=== PATIENT | male | born 1950 | race Caucasian/White ===

== ENCOUNTER 2020-11-02 12:20 | Inpatient (IN) | payer MEDICARE ==
--- NOTE | 2020-11-02 12:26 | ERPHSYRPT ---
- History of Present Illness Time Seen by Provider: 11/02/20 12:26 Source: patient Exam Limitations: clinical condition Physician History: This is a 70-year-old diabetic male who is not the best historian and states that he has had a left foot bunion tenderness with associated redness for at least 2 weeks. Patient states that he has not taken a bath in over a week. 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 He admits to not caring for himself very well. His family practice doctors are in [place]. Patient denies shortness of breath and he denies chest pain. He has not noticed any fevers. He has no abdominal pain. Patient arrives with somewhat rapid heart rate. Patient states he did not take his medications today. However he states he does not monitor his blood sugar at all. In further discussing his history he does have history of peripheral vascular disease and has left lower extremity stents in place per his report. He is a patient that has hypertension. He is taking Plavix, lisinopril, Zetia, metoprolol and Trental. Patient states he has no primary heart problems. He states he is never had a myocardial infarction and has no known heart rhythm problems. Method of Injury: other (No injury) Quality: aching Severity of Pain-Max: moderate Severity of Pain-Current: moderate Lower Extremities Pain: foot: left Modifying Factors: Improves With: nothing Allergies/Adverse Reactions: Penicillins Allergy (Verified 11/02/20 12:44) Home Medications: Allopurinol 100 mg [Zyloprim 100 mg] 100 mg PO DAILY 11/02/20 [History] Clopidogrel Bisulfate 75 mg [PLAVIX 75 MG Tablet] 75 mg PO DAILY 11/02/20 [History] Ezetimibe 10 mg [Zetia 10 MG] 10 mg PO DAILY 11/02/20 [History] Gabapentin 100 mg PO TID 11/02/20 [History] Lisinopril 20 mg [Zestril 20 MG] 20 mg PO DAILY 11/02/20 [History] Metformin HCl Xr 500 mg [Glucophage XR 500 MG] 500 mg PO DAILY 11/02/20 [History] Metoprolol Tartrate 50 mg PO DAILY 11/02/20 [History] Omeprazole 20 mg PO DAILY 11/02/20 [History] Pentoxifylline 400 mg [Trental 400 MG] 400 mg PO UD 11/02/20 [History] Simvastatin 80 mg PO DAILY 11/02/20 [History] Travel Risk - International Travel Have you traveled outside of the country in past 3 weeks: No - Coronavirus Screening Are you exhibiting any of the following symptoms?: No Close contact with a COVID-19 positive Pt in past 14-21 Days: No - Review of Systems Constitutional: No Symptoms Eyes: No Symptoms Ears, Nose, & Throat: No Symptoms Respiratory: No Symptoms Cardiac: No Symptoms Abdominal/Gastrointestinal: No Symptoms Genitourinary Symptoms: No Symptoms Musculoskeletal: Other (Left foot pain), No Fall, No Injury Skin: Cellulitis (Left foot) Neurological: No Symptoms Psychological: No Symptoms Endocrine: No Symptoms Hematologic/Lymphatic: No Symptoms Immunological/Allergic: No Symptoms All Other Systems: Reviewed and Negative - Past Medical History Pertinent Past Medical History: Yes - Past Surgical History Past Surgical History: Yes - Nursing Vital Signs Nursing Vital Signs: Initial Vital Signs Temperature 98.2 F 11/02/20 12:27 Pulse Rate 125 H 11/02/20 12:27 Blood Pressure 185/95 11/02/20 12:27 O2 Sat by Pulse Oximetry 94 L 11/02/20 12:27 Pain Scale Pain Intensity 2 - Physical Exam General Appearance: no apparent distress, alert, anxiety Eyes, Ears, Nose, Throat Exam: normal ENT inspection, moist mucous membranes Neck Exam: normal inspection, non-tender, supple, full range of motion Cardiovascular/Respiratory Exam: chest non-tender, normal breath sounds, heart sounds normal, no respiratory distress, irregularly irregular Gastrointestinal/Abdominal Exam: non-tender, soft Back Exam: normal inspection, normal range of motion, No CVA tenderness, No vertebral tenderness Hips Exam: bilateral: non-tender, normal inspection, normal range of motion, no evidence of injury Legs Exam: bilateral leg: non-tender, normal inspection, normal range of motion, no evidence of injury Knees Exam: bilateral knee: non-tender, normal inspection, normal range of motion, no evidence of injury Ankle Exam: bilateral ankle: non-tender, normal inspection, normal range of motion, no evidence of injury Foot Exam: right foot: non-tender, normal inspection, normal range of motion, left foot: bone tenderness, infection, soft tissue tenderness, swelling, bilateral foot: no evidence of injury Neuro/Tendon Exam: normal sensation, normal motor functions, normal tendon func tions, responds to pain Mental Status Exam: alert, oriented x 3, cooperative Skin Exam: other (See above left foot) SpO2 Interpretation: normal - Course Nursing assessment & vital signs reviewed: Yes EKG Interpreted by Me: RATE (115), NORMAL AXIS, NORMAL QRS, Other (?afib/flutter. No acute ischemic changes.) Ordered Tests: Active Orders 24 hr Category Date Time Status Finishing Area Operator STAT Care 11/02/20 13:24 Active EKG-ER Only STAT Care 11/02/20 13:54 Active IV Insertion STAT Care 11/02/20 12:38 Active POCT Glucose Check STAT Care 11/02/20 13:32 Active FOOT (MINIMUM 3 VIEWS) Stat Exams 11/02/20 12:43 Completed BLOOD CULTURE Stat Lab 11/02/20 13:00 Received CBC W DIFF Stat Lab 11/02/20 12:40 Completed CMP Stat Lab 11/02/20 12:40 Completed Lactic Acid Stat Lab 11/02/20 12:38 Completed POCT GLUCOSE Stat Lab 11/02/20 12:44 Completed Transfer Order Routine Transfer 11/02/20 Ordered Medication Summary Generic Name Dose Route Start Last Admin Trade Name Freq PRN Reason Stop Dose Admin Sodium Chloride 1,000 mls @ 100 mls/hr 11/02/20 12:45 11/02/20 12:53 Sodium Chloride 0.9% 1000 Ml IV 12/02/20 12:44 100 mls/hr .Q10H RAFAEL Administration Discontinued Medications Generic Name Dose Route Start Last Admin Trade Name Freq PRN Reason Stop Dose Admin Levofloxacin/Dextrose 500 mg in 100 mls @ 100 mls/hr 11/02/20 14:26 11/02/20 14:44 Levofloxacin 500mg/100ml D5w IV 11/02/20 15:25 100 mls/hr STAT STA 100 mls/hr Administration Levofloxacin/Dextrose Confirm 11/02/20 14:43 Levofloxacin 500mg/100ml D5w Administered 11/02/20 14:44 Dose 500 mg in 100 mls @ ud IV .STK-MED ONE Metoprolol Tartrate Confirm 11/02/20 13:57 Lopressor 5 Mg/5 Ml Injection Administered 11/02/20 13:58 Dose 5 mg IV .STK-MED ONE Metoprolol Tartrate 5 mg 11/02/20 14:00 11/02/20 13:55 Lopressor 5 Mg/5 Ml Injection IV 11/02/20 14:01 5 mg STAT ONE Administration Metoprolol Tartrate 2.5 mg 11/02/20 14:52 11/02/20 14:55 Lopressor 5 Mg/5 Ml Injection IV 11/02/20 14:53 2.5 mg STAT ONE Administration Metoprolol Tartrate Confirm 11/02/20 14:54 Lopressor 5 Mg/5 Ml Injection Administered 11/02/20 14:55 Dose 5 mg IV .STK-MED ONE Morphine Sulfate 4 mg 11/02/20 15:09 11/02/20 15:23 Morphine Sulfate 4 Mg Inj IV 11/02/20 15:10 4 mg STAT ONE Administration Morphine Sulfate Confirm 11/02/20 15:23 Morphine Sulfate 4 Mg Inj Administered 11/02/20 15:24 Dose 4 mg .ROUTE .STK-MED ONE Ondansetron HCl 4 mg 11/02/20 15:09 11/02/20 15:24 Zofran 4 Mg/2 Ml Vial IV 11/02/20 15:10 4 mg STAT ONE Administration Ondansetron HCl Confirm 11/02/20 15:22 Zofran 4 Mg/2 Ml Vial Administered 11/02/20 15:23 Dose 4 mg .ROUTE .STK-MED ONE Lab/Rad Data: Laboratory Result Diagrams 11/02/20 12:40 11/02/20 12:40 Laboratory Results 11/02/20 11/02/20 11/02/20 Range/Units 12:44 12:40 12:40 WBC 10.8 H (4.0-10.5) K/mm3 RBC 4.85 (4.1-5.6) M/mm3 Hgb 15.7 (12.5-18.0) gm/dl Hct 47.3 (42-50) % MCV 97.5 (78-100) fl MCH 32.4 H (26-32) pg MCHC 33.2 (32-36) g/dl RDW 13.4 (11.5-14.0) % Plt Count 349 (150-450) K/mm3 MPV 8.5 (7.5-11.0) fl Gran % 76.6 H (36.0-66.0) % Eos # (Auto) 0.08 (0-0.5) Absolute Lymphs (auto) 1.33 (1.0-4.6) Absolute Monos (auto) 1.09 (0.0-1.3) Lymphocytes % 12.3 L (24.0-44.0) % Monocytes % 10.1 (0.0-12.0) % Eosinophils % 0.7 (0.00-5.0) % Basophils % 0.3 (0.0-0.4) % Absolute Granulocytes 8.29 H (1.4-6.9) Basophils # 0.03 (0-0.4) Sodium 133 L (137-145) mmol/L Potassium 4.4 (3.5-5.1) mmol/L Chloride 99 (98-107) mmol/L Carbon Dioxide 24 (22-30) mmol/L Anion Gap 14.6 (5-15) MEQ/L BUN 9 (9-20) mg/dL Creatinine 0.70 (0.66-1.25) mg/dL Estimated GFR > 60.0 ML/MIN Glucose 120 H (74-106) mg/dL POC Glucometer 118 H (74 to 106) mg/dL Lactic Acid (0.4-2.0) Calcium 9.6 (8.4-10.2) mg/dL Total Bilirubin 0.60 (0.2-1.3) mg/dL AST 30 (17-59) U/L ALT 7 (0-50) U/L Alkaline Phosphatase 91 (38-126) U/L Serum Total Protein 7.4 (6.3-8.2) g/dL Albumin 4.0 (3.5-5.0) g/dL 11/02/20 Range/Units 12:38 WBC (4.0-10.5) K/mm3 RBC (4.1-5.6) M/mm3 Hgb (12.5-18.0) gm/dl Hct (42-50) % MCV (78-100) fl MCH (26-32) pg MCHC (32-36) g/dl RDW (11.5-14.0) % Plt Count (150-450) K/mm3 MPV (7.5-11.0) fl Gran % (36.0-66.0) % Eos # (Auto) (0-0.5) Absolute Lymphs (auto) (1.0-4.6) Absolute Monos (auto) (0.0-1.3) Lymphocytes % (24.0-44.0) % Monocytes % (0.0-12.0) % Eosinophils % (0.00-5.0) % Basophils % (0.0-0.4) % Absolute Granulocytes (1.4-6.9) Basophils # (0-0.4) Sodium (137-145) mmol/L Potassium (3.5-5.1) mmol/L Chloride (98-107) mmol/L Carbon Dioxide (22-30) mmol/L Anion Gap (5-15) MEQ/L BUN (9-20) mg/dL Creatinine (0.66-1.25) mg/dL Estimated GFR ML/MIN Glucose (74-106) mg/dL POC Glucometer (74 to 106) mg/dL Lactic Acid 1.8 (0.4-2.0) Calcium (8.4-10.2) mg/dL Total Bilirubin (0.2-1.3) mg/dL AST (17-59) U/L ALT (0-50) U/L Alkaline Phosphatase (38-126) U/L Serum Total Protein (6.3-8.2) g/dL Albumin (3.5-5.0) g/dL - Progress Progress: pain not gone completely, re-examined Progress Note: 11/02/20 13:08 X-ray of the left foot shows no acute fracture or dislocation. 11/02/20 13:23 There is dopplerable right pedal pulses. There is dopplerable left posterior tibial pulse that is weak. I do not appreciate a dopplerable left dorsalis pedis pulse. 11/02/20 15:21 Medical decision making: I think this patient would be best served by inpatient management. We spoke with Dr. Yusuf earlier today regarding this patient. Dr. Yusuf stated that we can consult him if the patient is admitted in the hospital. If the patient is to be discharged home he could be seen in the office tomorrow morning. The patient will be admitted into the hospital. I spoke with Dr. Patrick regarding this patient. I reviewed the patient history, condition, physical findings, results of his laboratory work-up as well as x-ray findings. We will admit him to the hospital and provide him with intravenous antibiotics, oral Plavix, gentle rehydration, and pain control as well as podiatric consultation. Counseled pt/family regarding: lab results, diagnosis - Departure Departure Disposition: Home Clinical Impression: Diabetic infection of left foot, Peripheral vascular disease Condition: Stable Critical Care Time: No Referrals: Provider,Unknown [NON-STAFF PHY W/O PRIVILEGES] -
[2020-11-02] MEDS ORDERED: Sodium Chloride 0.9% 1000 ML 1,000 ML IV SCH (12:45)
[2020-11-02] MEDS ORDERED: Sodium Chloride 0.9% 1000 ML 1,000 ML ONE (12:46)
--- NOTE | 2020-11-02 13:03 | XRAY ---
Indication: Pain and erythema 2 weeks. Diabetic ulcer 1st metatarsal. Comparison: None 3 nonweightbearing views left foot demonstrates moderate 1st MTP bunion deformity, small plantar heel spur, and mild scattered vascular calcifications. No other bony, articular, or soft tissue abnormalities.
[2020-11-02 13:09] LABS: Absolute Neutrophil Ct (ANC) 8.29 (1.4-6.9); BASOPHIL % 0.3 % (0.0-0.4); Basophil (Absolute #) 0.03 (0-0.4); Eosinophil % 0.7 % (0.00-5.0); Eosinophil (Absolute #) 0.08 (0-0.5); Hematocrit 47.3 % (42-50); Hemoglobin 15.7 gm/dl (12.5-18.0); Lymphocyte (Absolute #) 1.33 (1.0-4.6); Lymphocytes % 12.3 % (24.0-44.0); Mean Cell Volume 97.5 fl (78-100); Mean Corpuscular Hemoglobin 32.4 pg (26-32); Mean Corpuscular Hgb Concent. 33.2 g/dl (32-36); Mean Platelet Volume 8.5 fl (7.5-11.0); Monocyte (Absolute #) 1.09 (0.0-1.3); Monocytes % 10.1 % (0.0-12.0); Neutrophil % 76.6 % (36.0-66.0); Platelet Count 349 K/mm3 (150-450); Red Blood Count 4.85 M/mm3 (4.1-5.6); Red Cell Distribution Width 13.4 % (11.5-14.0); White Blood Count 10.8 K/mm3 (4.0-10.5)
[2020-11-02 13:22] LABS: ALKALINE PHOSPHATASE 91 U/L (38-126); ANION GAP 14.6 MEQ/L (5-15); BLOOD UREA NITROGEN 9 mg/dL (9-20); CHLORIDE 99 mmol/L (98-107); Calcium 9.6 mg/dL (8.4-10.2); Carbon Dioxide 24 mmol/L (22-30); EST GLOMERULAR FILTRATION RATE > 60.0 ML/MIN; Glucose 120 mg/dL (74-106); Potassium 4.4 mmol/L (3.5-5.1); SGOT/AST 30 U/L (17-59); SGPT/ALT 7 U/L (0-50); SODIUM 133 mmol/L (137-145); Total Protein 7.4 g/dL (6.3-8.2)
[2020-11-02] MEDS ORDERED: LOPRESSOR 5 MG/5 ML INJECTION IV ONE ×4 (13:57→14:54)
[2020-11-02] MEDS ORDERED: Levofloxacin 500MG/100ML D5W 500 MG/100 ML BAG IV STA (14:26)
[2020-11-02] MEDS ORDERED: Levofloxacin 500MG/100ML D5W 500 MG/100 ML BAG IV ONE (14:43)
[2020-11-02] MEDS ORDERED: MORPHINE SULFATE 4 MG INJ IV ONE (15:09)
[2020-11-02] MEDS ORDERED: Zofran 4 MG/2 ML VIAL IV ONE (15:09)
[2020-11-02] MEDS ORDERED: Zofran 4 MG/2 ML VIAL ONE (15:22)
[2020-11-02] MEDS ORDERED: MORPHINE SULFATE 4 MG INJ ONE (15:23)
[2020-11-02 16:10] LABS: INFLUENZA A NEGATIVE (NEGATIVE); INFLUENZA B NEGATIVE (NEGATIVE); RESPIRATORY SYNCTIAL VIRUS NEGATIVE (Negative)
[2020-11-02] MEDS ORDERED: TYLENOL 325 MG PO PRN (17:48)
[2020-11-02] MEDS ORDERED: Zofran 4 MG/2 ML VIAL IV PRN (17:48)
[2020-11-02] MEDS ORDERED: HUMULIN R SQ PRN (17:48)
[2020-11-02] MEDS ORDERED: NORCO 5/325 MG PO PRN (17:52)
[2020-11-02] MEDS ORDERED: DECADRON 10MG INJ. IV ONE (18:00)
[2020-11-02] MEDS ORDERED: REMDESIVIR 200 MG in Sodium Chloride 0.9% 250 ML 250 ML IV ONE (18:55)
[2020-11-02] MEDS ORDERED: REMDESIVIR IV ONE (19:01)
[2020-11-02] MEDS ORDERED: Sodium Chloride 0.9% 250 ML 250 ML IV ONE (19:01)
[2020-11-02] MEDS ORDERED: Decadron 4 MG INJ ONE (19:04)
[2020-11-02] MEDS: Sodium Chloride 0.9% 1000 ML 1,000 ML IV SCH (19:51)
[2020-11-02] MEDS ORDERED: PLAVIX 75 MG Tablet ONE (20:08)
[2020-11-02] MEDS: ZYLOPRIM 100 MG PO SCH (20:41)
[2020-11-02] MEDS: PLAVIX 75 MG Tablet PO SCH (20:41)
[2020-11-02] MEDS: Neurontin 100 MG PO SCH ×2 (20:41→23:18)
[2020-11-02] MEDS: Lopressor 50 MG PO SCH (20:41)
[2020-11-02] MEDS: Zetia 10 MG PO SCH (20:41)
[2020-11-02] MEDS: Zestril 20 MG PO SCH (20:42)
[2020-11-02] MEDS: Protonix 40MG Tablet PO SCH (20:42)
[2020-11-02] MEDS ORDERED: Glucophage XR 500 MG PO SCH (21:00)
[2020-11-02] MEDS ORDERED: ZOCOR 20MG PO SCH (21:00)
[2020-11-02] MEDS: MORPHINE SULFATE 4 MG INJ IV PRN (21:07)
[2020-11-02] MEDS: Ativan 1 MG PO SCH (23:27)
[2020-11-03] MEDS: MORPHINE SULFATE 4 MG INJ IV PRN ×4 (04:10→21:36)
[2020-11-03] MEDS: Sodium Chloride 0.9% 1000 ML 1,000 ML IV SCH ×2 (04:16→21:36)
[2020-11-03] MEDS ORDERED: MEDICATION INTERVENTION MC SCH (07:45)
[2020-11-03] MEDS ORDERED: Trental 400 MG PO SCH (08:00)
[2020-11-03 08:55] LABS: Absolute Neutrophil Ct (ANC) 7.27 (1.4-6.9); Basophil (Absolute #) 0 (0-0.4); Eosinophil % 0.1 % (0.00-5.0); Eosinophil (Absolute #) 0.01 (0-0.5); Hematocrit 50.6 % (42-50); Hemoglobin 16.2 gm/dl (12.5-18.0); Lymphocyte (Absolute #) 0.35 (1.0-4.6); Lymphocytes % 4.5 % (24.0-44.0); Mean Cell Volume 99.8 fl (78-100); Mean Platelet Volume 8.9 fl (7.5-11.0); Monocyte (Absolute #) 0.19 (0.0-1.3); Monocytes % 2.4 % (0.0-12.0); Platelet Count 353 K/mm3 (150-450); Red Blood Count 5.07 M/mm3 (4.1-5.6); Red Cell Distribution Width 13.6 % (11.5-14.0); White Blood Count 7.8 K/mm3 (4.0-10.5)
[2020-11-03 09:00] LABS: ALBUMIN 3.7 g/dL (3.5-5.0); ALKALINE PHOSPHATASE 75 U/L (38-126); ANION GAP 13.2 MEQ/L (5-15); BLOOD UREA NITROGEN 14 mg/dL (9-20); CHLORIDE 96 mmol/L (98-107); Calcium 9.4 mg/dL (8.4-10.2); Carbon Dioxide 28 mmol/L (22-30); Creatinine 1 0.72 mg/dL (0.66-1.25); EST GLOMERULAR FILTRATION RATE > 60.0 ML/MIN; Glucose 170 mg/dL (74-106); Potassium 5.6 mmol/L (3.5-5.1); SGOT/AST 29 U/L (17-59); SGPT/ALT 11 U/L (0-50); SODIUM 132 mmol/L (137-145); Total Protein 6.9 g/dL (6.3-8.2)
[2020-11-03] MEDS: Lopressor 50 MG PO SCH (09:05)
[2020-11-03] MEDS: Protonix 40MG Tablet PO SCH (09:06)
[2020-11-03] MEDS: Zetia 10 MG PO SCH (09:06)
[2020-11-03] MEDS: Levofloxacin 500MG/100ML D5W 500 MG/100 ML BAG IV SCH (09:06)
[2020-11-03] MEDS: Zestril 20 MG PO SCH (09:06)
[2020-11-03] MEDS: Neurontin 100 MG PO SCH ×3 (09:06→21:35)
[2020-11-03] MEDS: ZYLOPRIM 100 MG PO SCH (09:07)
--- NOTE | 2020-11-03 10:06 | PCM.CONS ---
Podiatry HPI - Consult Date of Consultation Date: 11/03/20 Reason for Consult: Left diabetic foot ulcer Consulting Provider: BERNICE SARMIENTO DPM - [facility] History of Present Illness: Devon is a very pleasant 70-year-old diabetic male who presents with admission for Covid positive status as well as a diabetic foot wound. He states that the wound has been there for approximately 3 weeks at this time he indicates when he presented to the emergency room he was not experiencing any symptoms however he did notice some changes to the inner aspect of his left foot that were concerning to him. Upon having a Covid test he demonstrated his positive status. Patient denies any constitutional symptoms of infection. He has not noticed any fevers nor has he noted any abdominal pain diarrhea or cough. He is an uncontrolled diabetic he does have a positive history of stent placement and PVD particularly to the left lower extremity performed at [facility] approximately 5 years ago. Today he states that he is unable to walk short distances without experiencing cramping sensations to the posterior aspect of his left calf. Left diabetic foot ulcer he currently denies any constitutional symptoms of infection. He denies any other pedal complaints at this time. Medications & Allergies Home Medications: Home Medication List Allopurinol 100 mg [Zyloprim 100 mg] 100 mg PO DAILY 11/02/20 [History Confirmed 11/02/20] Clopidogrel Bisulfate 75 mg [PLAVIX 75 MG Tablet] 75 mg PO DAILY 11/02/20 [History Confirmed 11/02/20] Ezetimibe 10 mg [Zetia 10 MG] 10 mg PO DAILY 11/02/20 [History Confirmed 11/02/20] Gabapentin 100 mg PO TID 11/02/20 [History Confirmed 11/02/20] Lisinopril 20 mg [Zestril 20 MG] 20 mg PO DAILY 11/02/20 [History Confirmed 11/02/20] Metformin HCl Xr 500 mg [Glucophage XR 500 MG] 500 mg PO DAILY 11/02/20 [History Confirmed 11/02/20] Metoprolol Tartrate 50 mg PO DAILY 11/02/20 [History Confirmed 11/02/20] Omeprazole 20 mg PO DAILY 11/02/20 [History Confirmed 11/02/20] Pentoxifylline 400 mg [Trental 400 MG] 400 mg PO UD 11/02/20 [History Confirmed 11/02/20] Simvastatin 80 mg PO DAILY 11/02/20 [History Confirmed 11/02/20] Allergies/Adverse Reactions: Allergies Allergy/AdvReac Type Severity Reaction Status Date / Time Penicillins Allergy Verified 11/02/20 12:44 - Past Medical History Past Medical History: Yes Neurological History: Peripheral Neuropathy Cardiac History: High Cholesterol, Hypertension Endocrine Medical History: Diabetes Type II Comment: gout, 5 stents in left leg - Past Surgical History Past Surgical History: Yes Other Surgical History: stents in left leg - Social History Smoking Status: Former smoker Exposure to second hand smoke: No Alcohol: Daily Drug Use: none Physical Exam - Narrative Narrative Physical Exam: Podiatry Physical Exam : Vascular nonpalpable DP and PT pulses to the bilateral lower extremity. Capillary refill time is sluggish at 5 seconds. There is no ascending lymphangitis or lymphadenopathy on palpation of the popliteal or inguinal lymph nodes. There is minimal cellulitis if any to the dorsal aspect of the foot. Wound noted see wound description below. Negative edema. Dermatological: Wound #1 medial aspect of first metatarsophalangeal joint with callused area over top open area measuring 2 cm x 1.3 cm at the most distal extent of the wound. There is a hemorrhagic callus beneath the margins of the wound. There is no crepitation. It appears to have started as a hemorrhagic bulla that has been present for some time. Negative undermining negative probe to bone. Neurological: Protective sensation is diminished to the bilateral lower extremity. Vibratory sensation is diminished. Intrinsic muscle atrophy to the bilateral lower extremity as presentation with contractures of digits. Musculoskeletal: Nonweightbearing exam muscle strength intact. Hallux abductovalgus digital deformities 234 abductor varus rotation of the fifth. Minimal pain to palpation of wound 3 views nonweightbearing of the left lower extremity demonstrating severe hallux abductovalgus with prominence of metatarsal head at the site of the wound. Th ere are no indications of cortical lysis at this location. Vascular calcifications seen throughout lateral view demonstrating no soft tissue emphysema and vascular calcifications in the dorsalis pedis artery. Digital contractures noted 234 and 5 with old fracture of fifth proximal phalanx noted soft tissue calcification within first webspace likely within vascular structure Results - Labs Lab/Micro Results: Lab Results-Last Hours 11/02/20 11/02/20 11/02/20 Range/Units 12:38 12:40 12:40 WBC 10.8 H (4.0-10.5) K/mm3 RBC 4.85 (4.1-5.6) M/mm3 Hgb 15.7 (12.5-18.0) gm/dl Hct 47.3 (42-50) % MCV 97.5 (78-100) fl MCH 32.4 H (26-32) pg MCHC 33.2 (32-36) g/dl RDW 13.4 (11.5-14.0) % Plt Count 349 (150-450) K/mm3 MPV 8.5 (7.5-11.0) fl Gran % 76.6 H (36.0-66.0) % Eos # (Auto) 0.08 (0-0.5) Absolute Lymphs (auto) 1.33 (1.0-4.6) Absolute Monos (auto) 1.09 (0.0-1.3) Lymphocytes % 12.3 L (24.0-44.0) % Monocytes % 10.1 (0.0-12.0) % Eosinophils % 0.7 (0.00-5.0) % Basophils % 0.3 (0.0-0.4) % Absolute Granulocytes 8.29 H (1.4-6.9) Basophils # 0.03 (0-0.4) D-Dimer (215-500) ng/mL Sodium 133 L (137-145) mmol/L Potassium 4.4 (3.5-5.1) mmol/L Chloride 99 (98-107) mmol/L Carbon Dioxide 24 (22-30) mmol/L Anion Gap 14.6 (5-15) MEQ/L BUN 9 (9-20) mg/dL Creatinine 0.70 (0.66-1.25) mg/dL Estimated GFR > 60.0 ML/MIN Glucose 120 H (74-106) mg/dL POC Glucometer (74 to 106) mg/dL Lactic Acid 1.8 (0.4-2.0) Calcium 9.6 (8.4-10.2) mg/dL Total Bilirubin 0.60 (0.2-1.3) mg/dL AST 30 (17-59) U/L ALT 7 (0-50) U/L Alkaline Phosphatase 91 (38-126) U/L Serum Total Protein 7.4 (6.3-8.2) g/dL Albumin 4.0 (3.5-5.0) g/dL Influenza Type A Ag (NEGATIVE) Influenza Type B Ag (NEGATIVE) RSV (PCR) (Negative) SARS-CoV-2 (PCR) (NEGATIVE) 11/02/20 11/02/20 11/02/20 Range/Units 12:44 15:22 21:32 WBC (4.0-10.5) K/mm3 RBC (4.1-5.6) M/mm3 Hgb (12.5-18.0) gm/dl Hct (42-50) % MCV (78-100) fl MCH (26-32) pg MCHC (32-36) g/dl RDW (11.5-14.0) % Plt Count (150-450) K/mm3 MPV (7.5-11.0) fl Gran % (36.0-66.0) % Eos # (Auto) (0-0.5) Absolute Lymphs (auto) (1.0-4.6) Absolute Monos (auto) (0.0-1.3) Lymphocytes % (24.0-44.0) % Monocytes % (0.0-12.0) % Eosinophils % (0.00-5.0) % Basophils % (0.0-0.4) % Absolute Granulocytes (1.4-6.9) Basophils # (0-0.4) D-Dimer (215-500) ng/mL Sodium (137-145) mmol/L Potassium (3.5-5.1) mmol/L Chloride (98-107) mmol/L Carbon Dioxide (22-30) mmol/L Anion Gap (5-15) MEQ/L BUN (9-20) mg/dL Creatinine (0.66-1.25) mg/dL Estimated GFR ML/MIN Glucose (74-106) mg/dL POC Glucometer 118 H 120 H (74 to 106) mg/dL Lactic Acid (0.4-2.0) Calcium (8.4-10.2) mg/dL Total Bilirubin (0.2-1.3) mg/dL AST (17-59) U/L ALT (0-50) U/L Alkaline Phosphatase (38-126) U/L Serum Total Protein (6.3-8.2) g/dL Albumin (3.5-5.0) g/dL Influenza Type A Ag NEGATIVE (NEGATIVE) Influenza Type B Ag NEGATIVE (NEGATIVE) RSV (PCR) NEGATIVE (Negative) SARS-CoV-2 (PCR) POSITIVE A (NEGATIVE) 11/03/20 11/03/20 11/03/20 Range/Units 05:00 05:15 05:30 WBC 7.8 (4.0-10.5) K/mm3 RBC 5.07 (4.1-5.6) M/mm3 Hgb 16.2 (12.5-18.0) gm/dl Hct 50.6 H (42-50) % MCV 99.8 (78-100) fl MCH 32.0 (26-32) pg MCHC 32.0 (32-36) g/dl RDW 13.6 (11.5-14.0) % Plt Count 353 (150-450) K/mm3 MPV 8.9 (7.5-11.0) fl Gran % 93.0 H (36.0-66.0) % Eos # (Auto) 0.01 (0-0.5) Absolute Lymphs (auto) 0.35 L (1.0-4.6) Absolute Monos (auto) 0.19 (0.0-1.3) Lymphocytes % 4.5 L (24.0-44.0) % Monocytes % 2.4 (0.0-12.0) % Eosinophils % 0.1 (0.00-5.0) % Basophils % 0.0 (0.0-0.4) % Absolute Granulocytes 7.27 H (1.4-6.9) Basophils # 0 (0-0.4) D-Dimer 718 H* (215-500) ng/mL Sodium 132 L (137-145) mmol/L Potassium 5.6 H D (3.5-5.1) mmol/L Chloride 96 L (98-107) mmol/L Carbon Dioxide 28 (22-30) mmol/L Anion Gap 13.2 (5-15) MEQ/L BUN 14 (9-20) mg/dL Creatinine 0.72 (0.66-1.25) mg/dL Estimated GFR > 60.0 ML/MIN Glucose 170 H (74-106) mg/dL POC Glucometer (74 to 106) mg/dL Lactic Acid (0.4-2.0) Calcium 9.4 (8.4-10.2) mg/dL Total Bilirubin 0.50 (0.2-1.3) mg/dL AST 29 (17-59) U/L ALT 11 (0-50) U/L Alkaline Phosphatase 75 (38-126) U/L Serum Total Protein 6.9 (6.3-8.2) g/dL Albumin 3.7 (3.5-5.0) g/dL Influenza Type A Ag (NEGATIVE) Influenza Type B Ag (NEGATIVE) RSV (PCR) (Negative) SARS-CoV-2 (PCR) (NEGATIVE) 11/03/20 Range/Units 07:06 WBC (4.0-10.5) K/mm3 RBC (4.1-5.6) M/mm3 Hgb (12.5-18.0) gm/dl Hct (42-50) % MCV (78-100) fl MCH (26-32) pg MCHC (32-36) g/dl RDW (11.5-14.0) % Plt Count (150-450) K/mm3 MPV (7.5-11.0) fl Gran % (36.0-66.0) % Eos # (Auto) (0-0.5) Absolute Lymphs (auto) (1.0-4.6) Absolute Monos (auto) (0.0-1.3) Lymphocytes % (24.0-44.0) % Monocytes % (0.0-12.0) % Eosinophils % (0.00-5.0) % Basophils % (0.0-0.4) % Absolute Granulocytes (1.4-6.9) Basophils # (0-0.4) D-Dimer (215-500) ng/mL Sodium (137-145) mmol/L Potassium (3.5-5.1) mmol/L Chloride (98-107) mmol/L Carbon Dioxide (22-30) mmol/L Anion Gap (5-15) MEQ/L BUN (9-20) mg/dL Creatinine (0.66-1.25) mg/dL Estimated GFR ML/MIN Glucose (74-106) mg/dL POC Glucometer 138 H (74 to 106) mg/dL Lactic Acid (0.4-2.0) Calcium (8.4-10.2) mg/dL Total Bilirubin (0.2-1.3) mg/dL AST (17-59) U/L ALT (0-50) U/L Alkaline Phosphatase (38-126) U/L Serum Total Protein (6.3-8.2) g/dL Albumin (3.5-5.0) g/dL Influenza Type A Ag (NEGATIVE) Influenza Type B Ag (NEGATIVE) RSV (PCR) (Negative) SARS-CoV-2 (PCR) (NEGATIVE) Microbiology 11/02/20 13:00 Blood Culture - Preliminary Blood NO GROWTH TO DATE 11/02/20 12:40 Blood Culture - Preliminary Blood NO GROWTH TO DATE Accuchecks Date 11/03/20 Date 11/02/20 Date 11/02/20 Time 07:03 Time 21:30 Time 12:44 - Radiology Impressions Radiology Exams & Impressions: Radiology Procedures Category Date Time Status FOOT (MINIMUM 3 VIEWS) Stat Exams 11/02/20 12:43 Completed - Other Procedures and Tests Respiratory Therapy 11/02/20 17:48 EKG REPEAT IN AM Assessment/Plan (1) Diabetic infection of left foot Current Visit: Yes Status: Acute Assessment & Plan: Initial patient examination and evaluation. Radiographs reviewed demonstrating no soft tissue emphysema or abnormalities that would consider this patient urgent for surgical intervention at this time Lab values reviewed demonstrating white blood cell count as of 5 AM this morning at 7.8 pending blood cultures at this time Dr. Torres managing antibiotics Presentation of wound is without purulence negative probe to bone negative undermining with hemorrhagic callus at this time patient is stable and likely will not need surgical intervention at this time however his nonpalpable pulses and uncontrolled diabetes make him a high risk patient for potential limb loss. At this time I would like arterial Dopplers in order to assess for healing potential. Prior to any intervention from my standpoint I believe he would be greatly benefited for a consultation for vascular surgery to see if reperfusion is necessitated. At this time he may benefit from this and we will see if there is demarcation of the wound itself versus need for surgical intervention with possible amputation. Patient understands all risks secondary to his disease process and has voiced his understanding that this may end in a potential amputation however we will proceed from a conservative standpoint at this time until vascular has had the opportunity to assess him Vascular studies pending Wound culture Thank you for the consultation Code(s): E11.628 - TYPE 2 DIABETES MELLITUS WITH OTHER SKIN COMPLICATIONS; L08.9 - LOCAL INFECTION OF THE SKIN AND SUBCUTANEOUS TISSUE, UNSP (2) Peripheral vascular disease Current Visit: Yes Status: Acute Code(s): I73.9 - PERIPHERAL VASCULAR DISEASE, UNSPECIFIED
[2020-11-03] MEDS: XARELTO 10 MG TABLET PO SCH (11:07)
[2020-11-03] MEDS: Lanoxin 0.125MG TABLET PO SCH (11:07)
--- NOTE | 2020-11-03 11:44 | HP ---
CHIEF COMPLAINT: Black, dark left big toe. HISTORY OF PRESENT ILLNESS: The patient was tested for COVID after he came in with an infected toe and he tested positive. He has no symptoms. He has no idea when it started. He has not been exposed to anybody that he knows of. The second problem that he is here for is that he is a diabetic. He has peripheral vascular disease which is severe. The left big toe had eschar over the top and to the side. There is no pus. It is not fluctuant. It is a hard eschar. He states it has not been more than a few days. He saw his doctor yesterday and was told to go to the emergency room. He has no fever or chills. He has had diabetes for 20 years. He is on gabapentin for the neuropathy pain that he has some peripheral vascular disease and also he is anticoagulated with platelet drugs since he has stents in the left leg. He takes Plavix and aspirin. MEDICATIONS: Lisinopril 20 mg. Ativan 1 mg h.s. was added. Metformin 500 q.d. Metoprolol 50 q.d. for rate control perhaps. He denied atrial fibrillation so maybe just for blood pressure. He did receive some morphine because of the pain in his foot in the emergency room, Zofran for nausea which he had after the morphine it looks like. Protonix 40 prophylactically which has not been stopped, Trental 400 q.d., Simvastatin 20 q.d., He did get one dose of dexamethasone however I discontinued that since he has no real COVID signs, no lung problems and that would elevate his blood sugar and perhaps alter the infection in his foot although it looks vascular. He is also on Allopurinol 100 q.d., gabapentin 100 mg t.i.d. ALLERGIES: PENICILLIN. REVIEW OF SYSTEMS: HEENT: No problems hearing or seeing. CHEST: No shortness of breath. No cough. No smoking. CVS: He denies any chest pain, shortness of breath or any heart problems. EXTREMITIES: He cannot walk for more than half a block before the foot becomes very painful and he has to sit down. He has had stenting on the left leg some years ago. PHYSICAL EXAMINATION: HEENT: No problems hearing or seeing. CHEST: No shortness of breath or cough. CVS: The nurse noticed that he has atrial fibrillation off and on, on the monitor. He does not realize that. ABDOMEN: No nausea or vomiting. No surgeries. No ulcers or gallbladder attacks. EXTREMITIES: The left foot has a thick eschar from the outside on top of the big toe. X-rays showed no bony involvement at this time. 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 2) Atrial fibrillation new to the patient, will anticoagulate and digoxin due to high rate. 3) Diabetes mellitus. Will keep his blood sugar under reasonable control with just Metformin. 4) COVID. We will give him Remdesivir while he is here. Probably the extent of his stay here will determine treatment of the eschar. He will need vascular studies at some point. I do not know if we want to put him in a scanner with active COVID. He is also being seen by a local vacuum truck driver, Dr. Paramjit Garcia. PROGNOSIS: Finley to be good.
[2020-11-03 13:56] LABS: Slide Review 1 YES
[2020-11-03] MEDS ORDERED: REMDESIVIR 100 MG in Sodium Chloride 0.9% 100 ML IVPB 100 ML IV SCH (17:00)
[2020-11-03] MEDS ORDERED: Glucophage XR 500 MG PO SCH (18:00)
--- NOTE | 2020-11-03 20:02 | XRAY ---
Exam: Bilateral lower extremity duplex Doppler venous ultrasound from 11/03/2020. Comparison: None. Indication: 70-year-old male with left foot ulcer. Technique: Gracia scale images, color blood flow images, and Doppler tracings without and with augmentation were obtained within both lower extremities. Findings: Within the right lower extremity, there was no evidence of echogenic clot. Color blood flow images appeared unremarkable. There was normal transducer compression and Doppler signal augmentation throughout. Normal compression was seen within the greater saphenous vein within the proximal thigh, mid right lower extremity, and distal right lower extremity. Normal transducer compression was seen within the profunda femoral vein. Within the left lower extremity, I saw no evidence of clot within the major deep venous structures on the gracia scale images or color blood flow images. Normal transducer compression and Doppler signal augmentation were seen throughout. Normal color blood flow is seen within the greater saphenous vein near the junction with the proximal superficial femoral vein. Normal color blood flow and Doppler signal augmentation are seen within the left profunda femoral vein. The greater saphenous vein reveals normal transducer compression within the proximal thigh, mid left lower extremity, and distal left leg. Impression: 1. No sonographic or Doppler evidence of deep venous or superficial venous thrombosis is seen within either lower extremity. Incidentally, moderate calcified atherosclerotic disease is seen within the common femoral arteries and proximal superficial femoral arteries bilaterally.
[2020-11-03] MEDS: Ativan 1 MG PO SCH (21:35)
[2020-11-03] MEDS ORDERED: ZOCOR 20MG PO SCH (22:00)
[2020-11-04 05:40] LABS: Hematocrit 41.7 % (42-50); Hemoglobin 13.5 gm/dl (12.5-18.0); Mean Corpuscular Hemoglobin 32.4 pg (26-32); Mean Corpuscular Hgb Concent. 32.4 g/dl (32-36); Mean Platelet Volume 8.7 fl (7.5-11.0); Platelet Count 260 K/mm3 (150-450); Red Blood Count 4.17 M/mm3 (4.1-5.6); Red Cell Distribution Width 13.3 % (11.5-14.0); White Blood Count 11.5 K/mm3 (4.0-10.5)
[2020-11-04 06:02] LABS: ALBUMIN 2.8 g/dL (3.5-5.0); ALKALINE PHOSPHATASE 53 U/L (38-126); BLOOD UREA NITROGEN 21 mg/dL (9-20); CHLORIDE 98 mmol/L (98-107); Carbon Dioxide 26 mmol/L (22-30); Creatinine 1 0.73 mg/dL (0.66-1.25); EST GLOMERULAR FILTRATION RATE > 60.0 ML/MIN; Glucose 122 mg/dL (74-106); Potassium 4.4 mmol/L (3.5-5.1); SGOT/AST 25 U/L (17-59); SGPT/ALT 8 U/L (0-50); SODIUM 128 mmol/L (137-145); Total Protein 5.6 g/dL (6.3-8.2)
[2020-11-04 07:13] VITALS: O2SAT 94
[2020-11-04] MEDS: MORPHINE SULFATE 4 MG INJ IV PRN ×2 (07:14→12:46)
[2020-11-04 07:24] VITALS: BP 127/67
[2020-11-04] MEDS: Lanoxin 0.125MG TABLET PO SCH (09:10)
[2020-11-04] MEDS: Zetia 10 MG PO SCH (09:10)
[2020-11-04] MEDS: Lopressor 50 MG PO SCH (09:10)
[2020-11-04] MEDS: XARELTO 10 MG TABLET PO SCH (09:10)
[2020-11-04] MEDS: Zestril 20 MG PO SCH (09:10)
[2020-11-04] MEDS: PLAVIX 75 MG Tablet PO SCH (09:10)
[2020-11-04] MEDS: Levofloxacin 500MG/100ML D5W 500 MG/100 ML BAG IV SCH (09:10)
[2020-11-04] MEDS: Protonix 40MG Tablet PO SCH (09:10)
[2020-11-04] MEDS: Neurontin 100 MG PO SCH (09:11)
[2020-11-04] MEDS: ZYLOPRIM 100 MG PO SCH (09:11)
[2020-11-04 11:27] VITALS: PULSE 72
--- NOTE | 2020-11-04 15:44 | XRAY ---
Exam: Ankle brachial index/limb pressures within bilateral lower extremities from 11/04/2020. Comparison: None. Indication: Left foot ulcer, history of peripheral vascular disease, history of multiple left lower extremity arterial stents. The patient also has a history of diabetes and left calf claudication. Findings: The ankle-brachial index on the right measures 0.84 consistent with mild ischemic disease. The toe brachial index on the right measures 0.75 which is consistent with borderline mild ischemic disease. Right brachial artery pressure was 128 mmHg. Distal right posterior tibial artery pressure was 92 mmHg and dorsalis pedis artery pressure was 108 mmHg. The ankle-brachial index on the left measures 0.48 which is consistent with severe ischemic disease. A total brachial index on the left was unable to be measured, as the senior technologist could not find a left great toe arterial waveform. In addition, no left dorsalis pedis artery waveform was seen. The Doppler waveform of the distal left posterior tibial artery appeared significantly dampened. Left brachial artery pressure was 113 mmHg. Distal posterior tibial artery pressure was 61 mmHg. Pressure within the dorsalis pedis artery was unable to be detected. Impression: 1. The ankle-brachial index on the right measures 0.84 consistent with mild ischemic disease. 2. The ankle-brachial index on the left measures 0.48 consistent with severe ischemic disease. The Doppler waveform within the distal left posterior tibial artery was significantly dampened. Waveforms within the dorsalis pedis artery and at the level left great toe were unable to be confidently identified.
--- NOTE | 2020-11-04 16:14 | XRAY ---
Exam: Bilateral lower extremity duplex Doppler arterial ultrasound from 11/04/2020. Comparison: None. Indication: Left foot ulcer, history of peripheral vascular disease, multiple left lower extremity arterial stents. On the right side, some atherosclerotic vascular calcification is seen within the common femoral artery, superficial femoral artery, and popliteal artery. Grayscale images, color blood flow images, and Doppler tracings were obtained. Peak systolic flow velocities in centimeters per second measure 82 within the common femoral artery, 102 within the superficial femoral artery, 70 within the profunda femoral artery, 66 within the popliteal artery, 60 within the distal posterior tibial artery, and 44 within the dorsalis pedis artery. The Doppler waveforms were biphasic within the common femoral artery, superficial femoral artery, and profunda femoral artery. The waveforms appeared monophasic within the right popliteal artery, distal posterior tibial artery, and dorsalis pedis artery. This is consistent with the right ankle-brachial index measuring 0.84 suggesting at least mild ischemic disease. On the left side, grayscale images, color blood flow images, and Doppler tracings were obtained as well. The ankle-brachial index on the left was 0.48 consistent with severe ischemic disease. I note unremarkable color blood flow within the left common femoral artery. The Doppler waveform appeared biphasic at this level with a peak systolic flow velocity of 78 cm/s. The profunda femoral artery reveals a biphasic waveform with a peak systolic flow velocity of 97 cm/s. Unremarkable color blood flow is seen at this level. However, there was very poor color blood flow within the proximal left superficial femoral artery, perhaps due to clot. The Doppler waveform appeared monophasic at this site. Within the left mid superficial femoral artery, no color blood flow or Doppler signal could be identified. There may be some adjacent collateral vessels with color imaging. Within the distal superficial femoral artery, there was reconstitution, although the color blood flow images revealed a significant stenosis within the distal left superficial femoral artery on a couple longitudinal images. Peak systolic flow velocity measured 122 cm/s within the distal superficial femoral artery. The Doppler waveform was monophasic. Only minimal blood flow was seen within the left popliteal artery with color imaging. A monophasic tardus parvus waveform was identified distal to the superficial femoral artery stenosis. The distal left posterior tibial artery revealed minimal Doppler signal with a peak systolic flow velocity of only 12.0 cm/s and a monophasic waveform. No arterial color blood flow or Doppler signal was able to be detected within the dorsalis pedis artery. Impression: 1. There is evidence of severe peripheral artery disease within the left lower extremity with an ankle-brachial index of only 0.48. I suspect significant clot within the proximal and mid left superficial femoral artery with some collaterals. There appears to be some reconstitution of the distal left superficial femoral artery with better color flow imaging, although there appears to be a significant stenosis within the distal superficial femoral artery. Beyond this, dampened monophasic waveforms were noted within the left popliteal artery and distal left posterior tibial artery. In fact, there appeared to be a tardus parvus waveform within the left popliteal artery. No color blood flow or Doppler signal could be detected within the left dorsalis pedis artery. 2. Findings consistent with mild ischemic disease within the right lower extremity with an ankle-brachial index of 0.84. Monophasic waveforms were seen within the right popliteal artery as well as a distal right posterior tibial artery and dorsalis pedis artery.
== END 2020-11-04 13:55 | disposition home health service (06) | DRG 637 ==
LOC: ED 12:20 → MED SURG 17:35
PROVIDERS: ADMIT Family Medicine; ATTEND Family Medicine
DX: E11.621 Type 2 diabetes mellitus with foot ulcer (principal); U07.1 COVID-19; E11.628 Type 2 diabetes mellitus with other skin complications; L08.9 Local infection of the skin and subcutaneous tissue, unspecified; I73.9 Peripheral vascular disease, unspecified; Z79.899 Other long term (current) drug therapy; Z79.01 Long term (current) use of anticoagulants; I48.91 Unspecified atrial fibrillation; I10 Essential (primary) hypertension; E78.00 Pure hypercholesterolemia, unspecified
CPT/HCPCS: 0241U; 36000; 36415; 73630; 80053; 80162; 82947; 83036; 83605; 85025; 85027; 85379; 87040; 87070; 93005; 93041; 93922; 93925; 93970; 94762; 96365; 96374; 96375; 96376; 99252; 99284; J1100; J1956; J2270; J2405; A9270-GY

== ENCOUNTER 2020-11-28 08:02 | Inpatient (IN) | payer MEDICARE ==
[2020-11-28] MEDS: HYDROCODONE-ACETAMIN 10-325 MG PO PRN ×2 (13:55→20:57)
[2020-11-28] MEDS: VANCOMYCIN 1 GRAM/200 ML BAG 1 GM/200 ML PIGGYBACK IV SCH (14:44)
[2020-11-28 14:51] LABS: INFLUENZA A NEGATIVE (NEGATIVE); INFLUENZA B NEGATIVE (NEGATIVE); RESPIRATORY SYNCTIAL VIRUS NEGATIVE (Negative)
--- NOTE | 2020-11-28 15:49 | PCM.CONS ---
Podiatry HPI - Consult Date of Consultation Date: 11/28/20 Reason for Consult: Gangrene left foot Consulting Provider: BERNICE SARMIENTO DPM - [facility] History of Present Illness: Mr. Murray is a very pleasant 70-year-old male who presents today for admission and follow-up of a gangrenous first MPJ of the left foot. Patient indicated when he was on the floor on the Covid unit that the wound had been present for approximately 3 weeks time at this time it is approximately 6 weeks and there have been some serious gangrenous changes in regards to discoloration as well as cyanotic appearance to the remaining forefoot. A CTA was preformed demonstrating total occlusion of SFA with reconstitution of the popliteal artery above the knee as well as single vessel runoff. Since his last appointment with myself he has followed up with Dr. Waggoner and underwent a left SFA femoropopliteal. Today he presents for IV abx and for surgical intervention. He currently denies any constitutional symptoms of infection. He denies any other pedal complaints at this time. Medications & Allergies Home Medications: Home Medication List Allopurinol 100 mg [Zyloprim 100 mg] 100 mg PO DAILY 11/02/20 [History Confirmed 11/28/20] Clopidogrel Bisulfate 75 mg [PLAVIX 75 MG Tablet] 75 mg PO DAILY 11/02/20 [History Confirmed 11/28/20] Ezetimibe 10 mg [Zetia 10 MG] 10 mg PO DAILY 11/02/20 [History Confirmed 11/28/20] Gabapentin 100 mg PO TID 11/02/20 [History Confirmed 11/28/20] Lisinopril 20 mg [Zestril 20 MG] 20 mg PO DAILY 11/02/20 [History Confirmed 11/28/20] Metformin HCl Xr 500 mg [Glucophage XR 500 MG] 500 mg PO DAILY 11/02/20 [History Confirmed 11/28/20] Metoprolol Tartrate 50 mg PO DAILY 11/02/20 [History Confirmed 11/28/20] Omeprazole 20 mg PO DAILY 11/02/20 [History Confirmed 11/28/20] Pentoxifylline 400 mg [Trental 400 MG] 400 mg PO UD 11/02/20 [History Confirmed 11/28/20] Simvastatin 80 mg PO DAILY 11/02/20 [History Confirmed 11/28/20] Digoxin 0.125 mg Tablet [Lanoxin 0.125MG TABLET] 0.25 mg PO DAILY #30 tablet 11/04/20 [Rx Confirmed 11/28/20] Levofloxacin [Levofloxacin 250MG Tablet] 250 mg PO DAILY #5 tab 11/04/20 [Rx Confirmed 11/28/20] Rivaroxaban 10 mg Tablet [Xarelto 10 mg Tablet] 20 mg PO DAILY #30 tablet 11/04/20 [Rx Confirmed 11/28/20] Allergies/Adverse Reactions: Allergies Allergy/AdvReac Type Severity Reaction Status Date / Time Penicillins Allergy Verified 11/02/20 12:44 - Past Medical History Past Medical History: Yes Neurological History: Peripheral Neuropathy ENT History: No Pertinent History Cardiac History: High Cholesterol, Hypertension Respiratory History: No Pertinent History Endocrine Medical History: Diabetes Type II Musculoskelatal History: No Pertinent History GI Medical History: No Pertinent History History: No Pertinent History Pyscho-Social History: No Pertinent History Male Reproductive Disorders: No Pertinent History Comment: gout, 5 stents in left leg. L ft wound. - Past Surgical History Past Surgical History: Yes Neuro Surgical History: No Pertinent History Cardiac History: No Pertinent History Respiratory Surgery: No Pertinent History GI Surgical History: No Pertinent History Genitourinary Surgical Hx: No Pertinent History Musculskeletal Surgical Hx: No Pertinent History Other Surgical History: stents in left leg - Social History Smoking Status: Former smoker Exposure to second hand smoke: No Alcohol: Daily Drug Use: none Physical Exam - Narrative Narrative Physical Exam: Podiatry Physical Exam: Vascular now palpable DP and PT pulses to the bilateral lower extremity following vascular left SFA . Capillary refill time is sluggish at 5 seconds. There is no ascending lymphangitis or lymphadenopathy on palpation of the popliteal or inguinal lymph nodes. There is minimal cellulitis if any to the dorsal aspect of the foot. Wound noted see wound description below. Negative edema. Dermatological: Wound #1 Location- Gangrenous appearance. Periwound area significantly cyanotic encompassing circumferential first through 5th digits of the left foot. Remaining foot is erythematous to the level of the choparts joint. There is no crepitation. It appears to have started as a hemorrhagic bulla that has been present for some time. Negative undermining negative probe to bone. Size5.8 x 6.8 x 0.1 stable necrosis and gangrenous changes to the medial aspect of the MPJ with cyanotic changes circumferential around the hallux . Wet appearence at this time. Negative for malodor negative for indications of infection. Neurological: Protective sensation is absent to the bilateral lower extremity. Vibratory sensation is diminished. Intrinsic muscle atrophy to the bilateral lower extremity as presentation with contractures of digits. Musculoskeletal: Nonweightbearing exam muscle strength intact. Hallux abductovalgus digital deformities 234 abductor varus rotation of the fifth. Minimal pain to palpation of wound 3 views nonweightbearing of the left lower extremity demonstrating severe hallux abductovalgus with prominence of metatarsal head at the site of the wound. Thre are no indications of cortical lysis at this location. Vascular calcifications seen throughout lateral view demonstrating no soft tissue emphysema and vascular calcifications in the dorsalis pedis artery. Digital contractures noted 234 and 5 with old fracture of fifth proximal phalanx noted soft tissue calcification within first webspace likely within vascular structure Results - Labs Lab/Micro Results: Lab Results-Last 24 Hours 11/28/20 Range/Units 14:00 Influenza Type A Ag NEGATIVE (NEGATIVE) Influenza Type B Ag NEGATIVE (NEGATIVE) RSV (PCR) NEGATIVE (Negative) SARS-CoV-2 (PCR) POSITIVE A (NEGATIVE) Assessment/Plan (1) Diabetic infection of left foot Current Visit: No Status: Acute Code(s): E11.628 - TYPE 2 DIABETES MELLITUS WITH OTHER SKIN COMPLICATIONS; L08.9 - LOCAL INFECTION OF THE SKIN AND SUBCUTANEOUS TISSUE, UNSP (2) Peripheral vascular disease Current Visit: No Status: Acute Assessment & Plan: Patient examination and evaluation Plan for observation on the floor at this time IV abx NPO at midnight Consent for Transmetatarsal vs choparts amputation left foot with intrinsic muscle flap Medicine team for medical management. Planned surgical intervention for tomorrow afternoon Pain control with [place] 10/325mg q4h PT/OT to eval and treat NWB to the left lower extremity. Case management for dc planning. Will follow closely Code(s): I73.9 - PERIPHERAL VASCULAR DISEASE, UNSPECIFIED
[2020-11-28] MEDS ORDERED: Trental 400 MG PO SCH (16:15)
[2020-11-28] MEDS ORDERED: MEDICATION INTERVENTION MC SCH (16:45)
[2020-11-28] MEDS ORDERED: HUMULIN R SQ PRN (16:45)
[2020-11-28 19:53] LABS: ABO TYPING B; Antibody Screen NEGATIVE (NEGATIVE); RH TYPING POSITIVE
[2020-11-28] MEDS: Neurontin 100 MG PO SCH (20:57)
[2020-11-29] MEDS: VANCOMYCIN 1 GRAM/200 ML BAG 1 GM/200 ML PIGGYBACK IV SCH ×2 (00:30→12:44)
[2020-11-29] MEDS: HYDROCODONE-ACETAMIN 10-325 MG PO PRN (05:12)
[2020-11-29 05:38] LABS: BASOPHIL % 0.3 % (0.0-0.4); Basophil (Absolute #) 0.03 (0-0.4); Eosinophil % 2.6 % (0.00-5.0); Eosinophil (Absolute #) 0.29 (0-0.5); Hematocrit 42.3 % (42-50); Hemoglobin 13.9 gm/dl (12.5-18.0); Lymphocyte (Absolute #) 1.46 (1.0-4.6); Lymphocytes % 13.1 % (24.0-44.0); Mean Cell Volume 98.4 fl (78-100); Mean Corpuscular Hemoglobin 32.3 pg (26-32); Mean Corpuscular Hgb Concent. 32.9 g/dl (32-36); Mean Platelet Volume 8.7 fl (7.5-11.0); Monocytes % 10.7 % (0.0-12.0); Neutrophil % 73.3 % (36.0-66.0); Platelet Count 316 K/mm3 (150-450); Red Cell Distribution Width 13.6 % (11.5-14.0); White Blood Count 11.2 K/mm3 (4.0-10.5)
[2020-11-29 05:50] LABS: ALBUMIN 3.3 g/dL (3.5-5.0); ALKALINE PHOSPHATASE 85 U/L (38-126); ANION GAP 10.8 MEQ/L (5-15); BLOOD UREA NITROGEN 13 mg/dL (9-20); CHLORIDE 95 mmol/L (98-107); Calcium 9.1 mg/dL (8.4-10.2); Carbon Dioxide 30 mmol/L (22-30); Creatinine 1 0.65 mg/dL (0.66-1.25); EST GLOMERULAR FILTRATION RATE > 60.0 ML/MIN; Glucose 96 mg/dL (74-106); Potassium 4.6 mmol/L (3.5-5.1); SGOT/AST 43 U/L (17-59); SGPT/ALT 18 U/L (0-50); SODIUM 131 mmol/L (137-145); Total Protein 6.6 g/dL (6.3-8.2)
[2020-11-29 05:59] LABS: Erythrocyte Sedimentation Rate 71 mm/hr (0-15)
--- NOTE | 2020-11-29 08:18 | HP ---
CHIEF COMPLAINT: Gangrene of the left foot and the five toes. HISTORY OF PRESENT ILLNESS: The patient is a 70 year-old white male who has had diabetes he thinks for 30 years. He takes oral medication. He said his blood sugar was a little bit low. He does not remember it being high. He does not smoke. He is retired. He lives by himself. He has had increased gangrene for several weeks and followed by podiatry. He was actually in [facility] getting IV antibiotics. He did have COVID test positive on 11/02/2020. At that time he was asymptomatic. He has had no symptoms of cough, chills, shortness of breath, chest pain or GI symptoms. He state he feels pretty well. ALLERGIES: PENICILLIN. PAST SURGICAL HISTORY: None. REVIEW OF SYSTEMS: HEENT: Slightly hard of hearing, sees okay. CHEST: No shortness of breath or cough. No smoking. CVS: No exertional chest pain, palpitations, myocardial infarctions or pulmonary emboli. ABDOMEN: No nausea or vomiting. No history of hepatitis or colon problems. EXTREMITIES: Initially numbness in the left foot. He has had no gangrene for several weeks, he states. PHYSICAL EXAMINATION: The patient is alert, orientated and pleasant. He seems to be in no distress. HEENT: Pupils equal and reactive to light. NECK: Supple without adenopathy. No bruits. CHEST: Clear. CVS: No murmurs or gallops. ABDOMEN: Soft. No masses or organomegaly. EXTREMITIES: Pulses slightly decreased in the wrists. There is no pulse in the left foot. Decreased pulse in the right foot. Right foot is warm and pink. Left foot has five dark blue toes. IMPRESSION: The patient has gangrene of the left foot involving all five toes. He was admitted for COVID. He is asymptomatic and that was over a month ago. He should not be infectious at this time. There is no need to put him on COVID medicine at this time. PLAN: It is probably safe for him to go ahead and have surgery for his gangrene. His primary care doctor recently was Dr. Noman Patrick. Apparently he saw him and said the surgery was okay and he is closely followed by his hand stemmer. He really thinks surgery is indicated as soon as possible. Certainly that seems reasonable to me. Certainly his COVID should not be a big factor at this point.
[2020-11-29] MEDS: Glucophage XR 500 MG PO SCH (08:27)
[2020-11-29] MEDS: PLAVIX 75 MG Tablet PO SCH (08:28)
[2020-11-29] MEDS: MORPHINE SULFATE 4 MG INJ IV PRN ×2 (09:11→11:28)
[2020-11-29] MEDS ORDERED: NON-FORMULARY ITEM (Omeprazole [Omeprazole] 20 MG) PO SCH (10:00)
[2020-11-29] MEDS ORDERED: NON-FORMULARY ITEM (Simvastatin [Simvastatin] 80 MG) PO SCH (10:00)
[2020-11-29] MEDS: Protonix 40MG Tablet PO SCH (11:41)
[2020-11-29] MEDS: Levofloxacin 250MG Tablet PO SCH (12:20)
[2020-11-29] MEDS: Neurontin 100 MG PO SCH ×3 (12:20→21:19)
[2020-11-29] MEDS: Lopressor 50 MG PO SCH (12:21)
[2020-11-29] MEDS: Zestril 20 MG PO SCH (12:21)
[2020-11-29] MEDS: Lanoxin 0.125MG TABLET PO SCH (12:21)
[2020-11-29] MEDS: Zetia 10 MG PO SCH (12:21)
[2020-11-29] MEDS: ZYLOPRIM 100 MG PO SCH (12:21)
[2020-11-29] MEDS ORDERED: Lactated Ringers 1,000 ML IV SCH (12:30)
[2020-11-29] MEDS ORDERED: BUPIVACAINE 0.5% VIAL IJ ONE (12:30)
[2020-11-29] MEDS ORDERED: XYLOCAINE 1% HCL 20 ML MDV ONE (12:30)
[2020-11-29] MEDS: Sodium Chloride 0.9% 1000 ML 1,000 ML IV SCH (12:44)
[2020-11-29] MEDS ORDERED: DIPRIVAN 200 MG/20 ML IV ONE (13:35)
[2020-11-29] MEDS ORDERED: SUBLIMAZE 100 MCG/2 ML ONE (13:36)
[2020-11-29] MEDS ORDERED: Versed 2 MG/2 ML Injection ONE (13:37)
[2020-11-29] MEDS ORDERED: Ketamine HCl 50 MG/ML ONE (13:37)
--- NOTE | 2020-11-29 15:20 | PCM.NOTE ---
Podiatry Post-Op Plan Podiatry Post-Op Plan: Podiatry Post-Op Plan Post-operative plan is as follows:[] ANTIBIOTICS: vancomycin 1 g IV q12h Levofloxacin 250 mg PO daily. PAIN CONTROL: [place] 10/325mg q4h moderate pain. Morphine 2 mg q4h severe pain. Discharge with [place] 7.5/325mg q6h VTE PROPHYLAXIS: Continue vascular mediciation protocol s/p fem pop. Xarelto 10 mg qd po for 30 days. DRESSINGS: Dressing to remain clean and dry. Reinforce with Kerlix/FILOMENA as necessary. Dressing changes per Podiatry ACTIVITY: NWB to operative side. THERAPIES: PT/OT consult for NWB to the left lower extremity at this time. [facility] Incentive Spirometry. PLACEMENT: CM consult for evaluation and possible SNF/Rehab placement.
--- NOTE | 2020-11-29 15:43 | OP ---
Podiatry Procedure Note Procedure Date:: 11/29/20 Procedure Time: 02:15 Podiatry Procedure Note: Preoperative diagnosis: 1. Diabetic foot infection 2. Peripheral vascular disease 3. Gangrenous left foot 4. Diabetes mellitus type 2 with peripheral neuropathy 5. Diabetes mellitus type 2with peripheral angiopathy Post-operative diagnosis:[Same] Anesthesia: [MAC plus local] Hemostasis: [Pressure dressing] Findings:[Intraoperatively once amputation was commenced significant odor coming from the wound with some purulent drainage coming out of the base of the second metatarsophalangeal joint this wound tracked proximally through the extensor tendon sheaths which was resected proximally and cleansed with us copious amounts of sterile saline] Estimated Blood Loss: [100 cc] Materials: [2-0 Vicryl 2-0 nylon quarter inch iodoform packing] Injectibles: [15]ccs 1% lidocaine plain + [15] ccs 0.5 % marcaine plain. Total [30]ccs Specimens:[Pathology sent left forefoot for permanent. Microbiology sent for culture anaerobic aerobic and Gram stain of soft tissue] Complications:[None] Condition:[Stable] Procedure Details:[] Following satisfactory pre-op evaluation the patient was brought into the OR and placed on the OR table in the supine position. MAC sedation was administered by anesthesia. Following sedation a time out was then called identifying patient identity, procedure, operative location, date, Allergies, antibiotics, and other pertinent information in regards to the surgery to which everyone agreed.At this time 30 cc of a one-to-one mixture of 1% lidocaine plain and 0.5% Marcaine plain was injected into the left ankle and an ankle block type fashionThe foot was then prepped and draped in the usual sterile manner and lowered onto the surgical field. Attention was then directed to the Left forefoot where the wound was encountered at the first metatarsophalangeal joint which extended approximately 6 cm proximally an incision was made encompassing this wound and saving as much viable appearing tissue at this time a large majority of the plantar aspect of the foot it appeared as though the lateral plantar aspect of the foot had adequate blood supply for wound healing. And the medial plantar aspect of the foot was beginning to become cyanotic at this time decision was made to do a lateral plantar artery flap with intrinsic muscle flap. Incision was carried down to bone where infection was encountered at the medial aspect of the forefoot. Soft tissue planes were dissected resecting first at the metatarsophalangeal joint saving as much skin at the distal aspect as possible and removing any necrotic infected devitalized tissue distally a Saba was then utilized to lift the soft tissues from there bone attachments at the dorsal and plantar aspect of the foot and a transmetatarsal amputation took place following this the medial aspect of the foot was assessed demonstrating some residual necrosis and infection at the medial cuneiform as well as to the tendons tracking proximally at the tibialis anterior incision was made further and the infection was cleansed out of the tendon sheaths from this point a disarticulation of the Chopart's joint was performed resulting in significant soft tissue in order to allow for closure of the wound however a portion of the dorsal aspect of the wound was left open in order to allow for infection to drain. At this time pulse lavage was utilized to cleanse the wound with 3 L of sterile saline following this any remaining devitalized tissue was removed at this time all pathological samples were sent for permanent and microbiological assessments were handed off the field for assessment at this time. At this time the intrinsic muscles of the plantar aspect of the foot were lifted off of the floor from the subcutaneous adipose fascial tissue and rotated to cover the distal aspect of the show parts joint in the case there is a wound dehiscence to prevent bone being exposed and potential osteomyelitis. At this time these intrinsic muscles were removed of any tendons and secured using 2-0 Vicryl to the adequate fascial tissue of the dorsalis pedis flap at the dorsal aspect of the remaining show parts amputation site at this time the soft tissue was transected so as to allow for a surgical site that would completely coapt and surgical planning took place. A 10 blade was utilized to take any redundant skin edges and any dogears at this time 2-0 Vicryl was utilized to coapt the subcutaneous skin edges together with the lateral plantar artery flap rotating medially. At this time 2-0 nylon was then utilized to coapt the skin edges and over and over one to stitch to y[place] the skin edges under minimal tension for a majority of the wound except the dorsal aspect of the wound at the medial site. These were alternated with simple interrupted sutures in between in order to coapt the skin edges completely with the exception of the dorsal medial aspect. At this point the wound appeared to be coapted except for the dorsal aspect. A wet and dry lap was utilized to cleanse the surgical site final inspection of the wound confirmed there was no longer any remainder of infected or necrotic tissue at this time quarter inch iodoform packing was packed into the deficit of the wound at the dorsal medial aspect and cut with a scissor outside of the surgical wound at this time Betadine was placed on the surgical wound Adaptic was applied to the surgical wound with a dressing consisting of 4 x 4's Kerlix and lightly applied Bebo. Patient was transported back to the postoperative anesthesia unit with vital signs stable and vascular status intact patient tolerated the surgical procedure without any complications. 1. notify medicine of return to floor 2. resume all pre-op medications, orders, and diet 3. Anticoagulation as described in post op orders. Continue protocol prescribed by team 4. Keep dressing CDI, podiatry to change daily 5. NWB to left foot 6. elevate left foot with pillow under leg 7. radiographs 3 views left foot
--- NOTE | 2020-11-29 16:36 | XRAY ---
Indication: Follow-up amputation surgery for gangrene. Comparison: November 02, 2020. 3 view left foot demonstrates interval mid to anterior foot amputation with intact talus/calcaneus and stable heel spur and lower leg vascular calcifications. Medial ankle demonstrates minimal subcutaneous air either postoperative versus gas-forming infection. Correlate clinically.
[2020-11-29] MEDS ORDERED: XARELTO 10 MG TABLET PO SCH (19:00)
[2020-11-29] MEDS: ZOCOR 20MG PO SCH (21:18)
[2020-11-30] MEDS: VANCOMYCIN 1 GRAM/200 ML BAG 1 GM/200 ML PIGGYBACK IV SCH ×2 (00:37→13:58)
[2020-11-30] MEDS: MORPHINE SULFATE 4 MG INJ IV PRN ×6 (01:26→22:15)
[2020-11-30] MEDS: Ativan 1 MG PO PRN (03:15)
[2020-11-30] MEDS: Sodium Chloride 0.9% 1000 ML 1,000 ML IV SCH (07:37)
[2020-11-30] MEDS: Zetia 10 MG PO SCH (09:03)
[2020-11-30] MEDS: Levofloxacin 250MG Tablet PO SCH (09:03)
[2020-11-30] MEDS: ZYLOPRIM 100 MG PO SCH (09:03)
[2020-11-30] MEDS: Neurontin 100 MG PO SCH ×3 (09:03→22:15)
[2020-11-30] MEDS: Glucophage XR 500 MG PO SCH (09:03)
[2020-11-30] MEDS: HYDROCODONE-ACETAMIN 10-325 MG PO PRN ×2 (09:06→15:26)
[2020-11-30] MEDS: Zestril 20 MG PO SCH (09:06)
[2020-11-30] MEDS: PLAVIX 75 MG Tablet PO SCH (09:06)
[2020-11-30] MEDS: Lanoxin 0.125MG TABLET PO SCH (09:06)
[2020-11-30] MEDS: Lopressor 50 MG PO SCH (09:06)
[2020-11-30] MEDS: Protonix 40MG Tablet PO SCH (09:06)
--- NOTE | 2020-11-30 11:26 | XRAY ---
Indication: custodial placement. Comparison: None Portable chest is clear with incidental azygos lobe. Heart is borderline enlarged. Bony thorax intact. Impression: Borderline cardiomegaly. Negative for acute pneumonic process or CHF.
[2020-11-30] MEDS ORDERED: TROUGH DRUG LEVELS IJ ONE (13:00)
--- NOTE | 2020-11-30 15:54 | PCM.NOTE ---
Podiatry Narrative Note Podiatry Narrative Note: Mr. Murray is a very pleasant 70-year-old male presenting today status post Chopart's amputation with intrinsic muscle flap. He is postop day 1. Date of surgery is 11/29/2020 at this time patient is progressing without significant complication. He denies any constitutional symptoms of infection. He denies any calf pain, shortness of breath.Or chest pain. He indicates that there is some pain to the left lower extremity which is being controlled with the morphine and [place]. He currently denies any other pedal complaints at this timeHe indicates that earlier today he made the decision to go to a rehab facility rather than back to his home following the procedure. Physical exam: Left lower extremity specific Vascular status: DP and PT pulses are palpable status post vascular intervention with Dr. Waggoner. Edges of incision of the flap with healthy bleeding as well as blanchable edges. No remaining evidence of cyanosis. Negative for proximal streaking, cellulitis or lymphangitis. No lymphadenopathy on palpation of the popliteal or inguinal lymph nodes. No edema noted. Dermatological: Dressings with acute hemorrhagic strikethrough on primary dressing no strikethrough on secondary dressing. Dressings removed and packing removed demonstrating no residual indications of remaining infection. Small portion at the proximal extent of the incision site appears to be slightly cyanotic however the remaining edges of the flap are blanchable with no indications of cyanosis necrosis or residual gangrene. Musculoskeletal deferred Neurological deferred Assessment: 1 diabetic foot infection 2 peripheral vascular disease status post intervention with a femoropopliteal bypass 3 diabetes mellitus with peripheral angiopathy 4 diabetes mellitus with peripheral neuropathy 5 gangrene left foot Plan Patient examination and evaluation Radiographs reviewed status post intervention demonstrating Chopart's amputation. Indicated soft tissue emphysema is consistent with open location and packing no residual infection remains on inspection of the wound today. Discussion with patient regarding outcome of surgical intervention is not guaranteed. Discussion with Dr. Waggoner prior to intervention with indications that a below-knee amputation is still a possibility secondary to his severely limited vascular output Pending cultures taken intraoperatively.At this time we will follow closely with wound care and evaluate for a decrease in his white blood cell count as well as sed rate. Vancomycin trough after fourth dose Continue levofloxacin 250 mg p.o. daily Continue vascular protocol status post femoral-popliteal intervention with Plavix and Xarelto 200 mg daily p.o. for 30 days Dressings to remain clean dry and intact. If strikethrough reinforced with Kerlix and Bebo as necessary. Activity nonweightbearing to the operative extremity. Therapies: PT OT consult for nonweightbearing to the left lower extremity. Right leg for transfers to the bedside commode along with incentive spirometry. Placement: Case management/older adult social work specialist for placement to intermediate facility. Patient will likely be discharged with antibiotics and need pain medication as well as regular follow-up at my office until he is ready to begin weightbearing
[2020-11-30] MEDS ORDERED: VANCOMYCIN 1.25 GM/250 ML BAG 1.25 GM/250 ML PIGGYBACK IV SCH (16:00)
[2020-11-30] MEDS: XARELTO 10 MG TABLET PO SCH (17:06)
[2020-11-30] MEDS: ZOCOR 20MG PO SCH (22:15)
[2020-11-30] MEDS: VANCOMYCIN 1.25 GM/250 ML BAG 1.25 GM/250 ML PIGGYBACK IV SCH (22:15)
[2020-12-01] MEDS: Ativan 1 MG PO PRN ×3 (00:09→21:12)
[2020-12-01] MEDS: MORPHINE SULFATE 4 MG INJ IV PRN ×6 (00:56→20:11)
[2020-12-01] MEDS: HYDROCODONE-ACETAMIN 10-325 MG PO PRN ×4 (01:28→21:12)
[2020-12-01 05:07] LABS: Absolute Neutrophil Ct (ANC) 8.65 (1.4-6.9); BASOPHIL % 0.2 % (0.0-0.4); Basophil (Absolute #) 0.02 (0-0.4); Eosinophil % 2.3 % (0.00-5.0); Eosinophil (Absolute #) 0.26 (0-0.5); Hematocrit 37.3 % (42-50); Hemoglobin 12.3 gm/dl (12.5-18.0); Lymphocyte (Absolute #) 1.25 (1.0-4.6); Lymphocytes % 10.9 % (24.0-44.0); Mean Cell Volume 98.7 fl (78-100); Mean Corpuscular Hemoglobin 32.5 pg (26-32); Mean Platelet Volume 8.5 fl (7.5-11.0); Monocyte (Absolute #) 1.32 (0.0-1.3); Monocytes % 11.5 % (0.0-12.0); Neutrophil % 75.1 % (36.0-66.0); Platelet Count 294 K/mm3 (150-450); Red Blood Count 3.78 M/mm3 (4.1-5.6); Red Cell Distribution Width 13.6 % (11.5-14.0); White Blood Count 11.5 K/mm3 (4.0-10.5)
[2020-12-01 05:22] LABS: ANION GAP 10.6 MEQ/L (5-15); BLOOD UREA NITROGEN 12 mg/dL (9-20); CHLORIDE 97 mmol/L (98-107); Calcium 8.6 mg/dL (8.4-10.2); Carbon Dioxide 27 mmol/L (22-30); Creatinine 1 0.71 mg/dL (0.66-1.25); EST GLOMERULAR FILTRATION RATE > 60.0 ML/MIN; Glucose 99 mg/dL (74-106); Potassium 4.2 mmol/L (3.5-5.1); SODIUM 130 mmol/L (137-145)
[2020-12-01] MEDS: Sodium Chloride 0.9% 1000 ML 1,000 ML IV SCH (05:34)
[2020-12-01] MEDS: Zetia 10 MG PO SCH (08:58)
[2020-12-01] MEDS: ZYLOPRIM 100 MG PO SCH (08:58)
[2020-12-01] MEDS: Protonix 40MG Tablet PO SCH (08:58)
[2020-12-01] MEDS: PLAVIX 75 MG Tablet PO SCH (08:58)
[2020-12-01] MEDS: Lanoxin 0.125MG TABLET PO SCH (08:58)
[2020-12-01] MEDS: Glucophage XR 500 MG PO SCH (08:58)
[2020-12-01] MEDS: Zestril 20 MG PO SCH (08:58)
[2020-12-01] MEDS: Neurontin 100 MG PO SCH (08:59)
[2020-12-01] MEDS: Levofloxacin 250MG Tablet PO SCH (08:59)
[2020-12-01] MEDS: VANCOMYCIN 1.25 GM/250 ML BAG 1.25 GM/250 ML PIGGYBACK IV SCH ×2 (08:59→21:11)
[2020-12-01] MEDS: Lopressor 50 MG PO SCH (08:59)
--- NOTE | 2020-12-01 12:30 | XRAY ---
Indication: Follow-up amputation for gangrene. Comparison: November 29, 2020. 3 view left foot demonstrates stable mid to anterior foot amputation with intact talus/calcaneus, incidental plantar heel spur, and lower leg vascular calcifications. Previous subcutaneous emphysema has resolved. No new abnormalities.
--- NOTE | 2020-12-01 13:03 | PCM.NOTE ---
Podiatry Narrative Note Podiatry Narrative Note: Mr. Murray is a very pleasant 70-year-old male presenting today status post Chopart's amputation with intrinsic muscle flap. He is postop day 2. Date of surgery is 11/29/2020 at this time patient is progressing without significant complication. He denies any constitutional symptoms of infection. He denies any calf pain, shortness of breath.Or chest pain. He indicates that there is pain to the left lower extremity which is being controlled with the morphine and [place]. He currently denies any other pedal complaints at this time. Physical exam: Left lower extremity specific Vascular status: DP and PT pulses are palpable status post vascular intervention with Dr. Waggoner. Edges of incision of the flap with healthy bleeding as well as blanchable edges. some evidence of cyanotic tissue at the proximal medial aspect of surgical wound. plantar flap appears to be turning slightly dusky at the sutures at the dorsal lateral aspect of the flap. Flap is non-blanchable which is concerning however this is early in the course. Negative for proximal streaking, cellulitis or lymphangitis. No lymphadenopathy on palpation of the popliteal or inguinal lymph nodes. No edema noted. Dermatological: Dressings with acute hemorrhagic strikethrough on primary dressing no strikethrough on secondary dressing. Dressings removed and packing removed demonstrating no residual indications of remaining infection. No remaining sodt tissue with no indications of cyanosis necrosis or residual gangrene. 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 11/29/20 Plan Patient examination and evaluation Radiographs reviewed status post intervention demonstrating Chopart's amputation. wound cleansed and re dressed. discontinued packing. Discussion with patient regarding outcome of surgical intervention is not guaranteed. Discussion with Dr. Waggoner prior to intervention with indications that a below-knee amputation is still a possibility secondary to his severely limited vascular output Pending cultures taken intraoperatively.At this time we will follow closely with wound care and evaluate for a decrease in his white blood cell count as well as sed rate. Procalcitonin to track antibiotic efficacy. Vancomycin trough after fourth dose Continue levofloxacin 250 mg p.o. daily Continue vascular protocol status post femoral-popliteal intervention with Plavix and Xarelto 20 mg daily p.o. for 30 days Dressings to remain clean dry and intact. If strikethrough reinforced with Kerlix and Bebo as necessary. Planning for closure at beside tomorrow morning. Consent to read- delayed primary closure left foot choparts amputation. This will be preformed under local anesthesia. Activity nonweightbearing to the operative extremity. Therapies: PT OT consult for nonweightbearing to the left lower extremity. Right leg for transfers to the bedside commode along with incentive spirometry. Placement: Case management/social director for placement to detention facility. Place picc line Patient will likely be discharged with IV antibiotics and need pain medication as well as regular follow-up at my office until he is ready to begin weightbearing
[2020-12-01] MEDS ORDERED: TORAdol 10 MG TABLET PO PRN (13:39)
[2020-12-01] MEDS: LYRICA 75 MG CAP PO SCH ×2 (14:18→21:13)
[2020-12-01] MEDS: XARELTO 10 MG TABLET PO SCH (17:08)
[2020-12-01] MEDS: ZOCOR 20MG PO SCH (21:12)
[2020-12-02 05:35] LABS: Absolute Neutrophil Ct (ANC) 7.11 (1.4-6.9); BASOPHIL % 0.2 % (0.0-0.4); Basophil (Absolute #) 0.02 (0-0.4); Eosinophil % 2.4 % (0.00-5.0); Eosinophil (Absolute #) 0.23 (0-0.5); Hematocrit 39.7 % (42-50); Hemoglobin 12.9 gm/dl (12.5-18.0); Lymphocyte (Absolute #) 1.23 (1.0-4.6); Lymphocytes % 12.8 % (24.0-44.0); Mean Cell Volume 100.3 fl (78-100); Mean Corpuscular Hemoglobin 32.6 pg (26-32); Mean Corpuscular Hgb Concent. 32.5 g/dl (32-36); Mean Platelet Volume 8.4 fl (7.5-11.0); Monocyte (Absolute #) 0.99 (0.0-1.3); Monocytes % 10.3 % (0.0-12.0); Neutrophil % 74.3 % (36.0-66.0); Platelet Count 330 K/mm3 (150-450); Red Blood Count 3.96 M/mm3 (4.1-5.6); Red Cell Distribution Width 13.7 % (11.5-14.0); White Blood Count 9.6 K/mm3 (4.0-10.5)
[2020-12-02] MEDS: Sodium Chloride 0.9% 1000 ML 1,000 ML IV SCH (05:35)
[2020-12-02] MEDS: HYDROCODONE-ACETAMIN 10-325 MG PO PRN ×3 (05:35→14:56)
[2020-12-02 05:48] LABS: ANION GAP 10.8 MEQ/L (5-15); BLOOD UREA NITROGEN 14 mg/dL (9-20); CHLORIDE 97 mmol/L (98-107); Calcium 8.4 mg/dL (8.4-10.2); Carbon Dioxide 30 mmol/L (22-30); Creatinine 1 0.81 mg/dL (0.66-1.25); EST GLOMERULAR FILTRATION RATE > 60.0 ML/MIN; Glucose 97 mg/dL (74-106); SODIUM 133 mmol/L (137-145)
[2020-12-02 05:51] LABS: Potassium 5.1 mmol/L (3.5-5.1)
[2020-12-02] MEDS: Ativan 1 MG PO PRN (07:23)
[2020-12-02] MEDS: MORPHINE SULFATE 4 MG INJ IV PRN (08:10)
--- NOTE | 2020-12-02 08:49 | OP ---
Podiatry Procedure Note Procedure Date:: 12/02/20 Procedure Time: 08:48 Podiatry Procedure Note: Podiatry Procedure Note: Preoperative diagnosis: 1. Diabetic foot infection 2. Peripheral vascular disease 3. Gangrenous left foot 4. Diabetes mellitus type 2 with peripheral neuropathy 5. Diabetes mellitus type 2with peripheral angiopathy Post-operative diagnosis:[Same] Procedure: Delayed primary closure of left choparts amputation Anesthesia: local consisting of 8cc 1% lidocaine plain and .5% marcaine plain in a posterior tibial nerve deep and superficial peroneal nerve block. Hemostasis: [Pressure dressing] Findings: Skin edges coapt without any residual signs of infection/ necrotic tissue. Dusky appearence of dorolateral aspect of flap. Estimated Blood Loss: [100 cc] Materials: [2-0 Vicryl 2-0 nylon quarter inch iodoform packing] Injectibles: [4]ccs 1% lidocaine plain + [4] ccs 0.5 % marcaine plain. Total [8]ccs Specimens:none Complications:[None] Condition:[Stable] Procedure Details:[] Following satisfactory pre-op evaluation the patient was cleansed in a sterile fashion prior to local block to the dorsal aspect of the elft foot. The foot was then prepped and draped in the usual aseptic manner and lowered onto the surgical field. Attention was then directed to the left foot where the doromedial aspect of the incision was inspected and found to be free of any residual infection or necrosis. When incised the skin edge bled appropriately. The area was then cleaned by pressure lavage. The subcutaneous tissue was then reapproximated using 2-0 vicryl suture by simple interuppted stitch type fashion. The skin was then coapted using 3-0 nylon by simple interupted stitch type fashion. A dressing was applied consisting of xeroform, 4x4 guaze, kerlix, and conform. The patient tolerated local anesthesia and the procedure well. VSS and VSI to the left foot. Orders fore the following were placed: 1. Keep dressing CDI, podiatry to change daily 2. NWB to left foot 3. Elevate left foot with pillow under leg 4. Pain control as previously prescribed 5. Abx as prescribed in chart. PICC line placed. Vancomycin 1.25g q12h continue levofloxacin 250mg po daily. 6. Dc ok from podiatry standpoint when cleared with medicine. 7. Dressing change to take place December 05 consisting of betadine, xeroform, 4x4 gauze, kerlix and 4 inch jeannine. 8. Follow up in 1 week
[2020-12-02] MEDS ORDERED: PHARMACY DOSING REQUEST MC ONE (08:59)
[2020-12-02] MEDS: Lopressor 50 MG PO SCH (09:12)
[2020-12-02] MEDS: LYRICA 75 MG CAP PO SCH ×2 (09:12→14:57)
[2020-12-02] MEDS: PLAVIX 75 MG Tablet PO SCH (09:12)
[2020-12-02] MEDS: Zetia 10 MG PO SCH (09:12)
[2020-12-02] MEDS: Levofloxacin 250MG Tablet PO SCH (09:12)
[2020-12-02] MEDS: Lanoxin 0.125MG TABLET PO SCH (09:12)
[2020-12-02] MEDS: ZYLOPRIM 100 MG PO SCH (09:12)
[2020-12-02] MEDS: Glucophage XR 500 MG PO SCH (09:13)
[2020-12-02] MEDS: Protonix 40MG Tablet PO SCH (09:13)
[2020-12-02] MEDS: Zestril 20 MG PO SCH (09:14)
[2020-12-02] MEDS: VANCOMYCIN 1.25 GM/250 ML BAG 1.25 GM/250 ML PIGGYBACK IV SCH (10:45)
--- NOTE | 2020-12-02 11:11 | XRAY ---
Indication: PICC line placement. Positive Covid 19. Comparison: November 30, 2020. Portable chest demonstrates new right arm PICC line with tip projecting over the right atrium. Remaining chest again demonstrates borderline cardiomegaly and new tiny bibasilar effusions.
[2020-12-02 11:38] VITALS: BP 104/59
[2020-12-02] MEDS ORDERED: Sodium Chloride 0.9% 10 ML FLUSH Syringe PICC PRN (12:20)
[2020-12-02 13:44] VITALS: PULSE 79; O2SAT 95
[2020-12-02] MEDS: XARELTO 10 MG TABLET PO SCH (14:57)
== END 2020-12-02 16:05 | DRG 241 ==
LOC: MED SURG 08:02 → OBSVTOIN 11-29 08:02
PROVIDERS: ADMIT Family Medicine; ATTEND Family Medicine
PROC: 0Y6N0Z9 Detachment at Left Foot, Partial 1st Ray, Open Approach (ICD-10-PCS; principal; 2020-11-29)
PROC: 0Y6N0ZB Detachment at Left Foot, Partial 2nd Ray, Open Approach (ICD-10-PCS; 2020-11-29)
PROC: 0Y6N0ZC Detachment at Left Foot, Partial 3rd Ray, Open Approach (ICD-10-PCS; 2020-11-29)
PROC: 0Y6N0ZD Detachment at Left Foot, Partial 4th Ray, Open Approach (ICD-10-PCS; 2020-11-29)
PROC: 0Y6N0ZF Detachment at Left Foot, Partial 5th Ray, Open Approach (ICD-10-PCS; 2020-11-29)
PROC: 0KU Muscles, Supplement (ICD-10-PCS; 2020-12-02)
DX: E11.52 Type 2 diabetes mellitus with diabetic peripheral angiopathy with gangrene (principal); E11.42 Type 2 diabetes mellitus with diabetic polyneuropathy; L08.9 Local infection of the skin and subcutaneous tissue, unspecified; I73.9 Peripheral vascular disease, unspecified; Z79.899 Other long term (current) drug therapy; I10 Essential (primary) hypertension; E78.00 Pure hypercholesterolemia, unspecified
CPT/HCPCS: 0241U; 15738; 20999; 28800; 36415; 71045; 73630; 80048; 80053; 80202; 82947; 84145; 85025; 85652; 86140; 86850; 86900; 86901; 87070; 87075; 88311; 93005; 93268; G0378; 88307; 99100; 99140; J2250; J2270; J2704; J3010; A9270-GY; J3370

== ENCOUNTER 2022-07-24 09:02 | Day surgery (SDC) | payer MEDICARE ==
[2022-07-24] MEDS ORDERED: Epinephrine Preservative Free 1 MG/ML IJ ONE (09:03)
[2022-07-24] MEDS ORDERED: cefUROXime sodium 0.005 GM in Sodium Chloride Flush 30 ML*** 0.5 ML IJ ONE (09:15)
[2022-07-24] MEDS ORDERED: NON-FORMULARY ITEM OP ONE (09:15)
[2022-07-24] MEDS ORDERED: Ak-Dilate OPHTHALMIC*** 1.065 ML, Cyclogyl 1% OPHTH SOL 1.065 ML, GATIFLOXACIN 0.5% OPH... OP ONE ×4 (09:15)
[2022-07-24] MEDS ORDERED: TETRACAINE 0.5% STERI-UNIT SOL OP ONE ×2 (09:15)
[2022-07-24] MEDS ORDERED: BETADINE 5% OPHTHALMIC 30 ML OP ONE (09:15)
[2022-07-24] MEDS ORDERED: Lactated Ringers 1,000 ML IV SCH (09:15)
[2022-07-24] MEDS ORDERED: Lactated Ringers 1,000 ML IV ONE (09:48)
[2022-07-24] MEDS ORDERED: Zofran 4 MG/2 ML VIAL IV PRN (11:15)
[2022-07-24] MEDS ORDERED: ACETAZOLAMIDE 250 MG TABLET PO ONE (11:15)
[2022-07-24] MEDS ORDERED: DIPRIVAN 200 MG/20 ML IV ONE (11:34)
[2022-07-24] MEDS ORDERED: SUBLIMAZE 250 MCG/5 ML ONE (11:34)
[2022-07-24] MEDS ORDERED: SUBLIMAZE 100 MCG/2 ML ONE (11:41)
[2022-07-24 12:22] VITALS: BP 120/63; PULSE 69; O2SAT 94
== END 2022-07-24 12:40 | disposition home or self-care (01) ==
LOC: SDC 09:02
PROVIDERS: ATTEND Ophthalmology
DX: H25.812 Combined forms of age-related cataract, left eye (principal); E11.9 Type 2 diabetes mellitus without complications; I10 Essential (primary) hypertension
CPT/HCPCS: 82947; 93005; 99100; C1780; J0171; J2704; J3010; A9270-GY